=== PATIENT | male | born 1995 | race American Indian/Alaskan Native ===

== ENCOUNTER 2018-02-17 00:15 | Emergency (ER) | payer SELFPAY ==
[2018-02-17 00:30] VITALS: BP 123/88; PULSE 86; RESP 16; TEMP 98.1; O2SAT 100
--- NOTE | 2018-02-17 01:06 | C.PDOC ---
History Of Present Illness 22 year old male presents to the ER after he woke up from sleep with swelling and itching to the bilateral eyes and nasal congestion. Patient reports a Hx of seasonal allergies but states they have never been that bad. Denies any known allergens, SOB, chest tightness, or oral lesions. Time Seen by Provider: 02/17/18 00:45 Chief Complaint (Nursing): Allergic Reaction History Per: Patient History/Exam Limitations: no limitations Onset/Duration Of Symptoms: Hrs Current Symptoms Are (Timing): Still Present Injury To Eye?: No Associated Symptoms: Swelling, Itching Recent travel outside of the [place]: No Past Medical History Reviewed: Historical Data, Nursing Documentation, Vital Signs Vital Signs: Last Vital Signs Temp 98.1 F 02/17/18 00:28 Pulse 86 02/17/18 00:28 Resp 16 02/17/18 00:28 BP 123/88 02/17/18 00:28 Pulse Ox 100 02/17/18 00:28 Family History: States: No Known Family Hx - Social History Hx Alcohol Use: No Hx Substance Use: No - Immunization History Hx Tetanus Toxoid Vaccination: No Hx Influenza Vaccination: No Hx Pneumococcal Vaccination: No Review Of Systems Constitutional: Negative for: Fever, Chills Eyes: Positive for: Other (Eyelid swelling and itching) ENT: Positive for: Nose Congestion Respiratory: Negative for: Shortness of Breath, Other (Chest tightness) Physical Exam - Physical Exam Appears: Non-toxic Skin: Normal Color, Warm, Dry Head: Atraumatic, Normacephalic, No Tenderness (Frontal sinus) Eye(s): bilateral: PERRL, EOMI, Other (Upper and lower eyelid swelling, ciliary injection, no crusting of eyelids) Nose: Discharge (Clear) Oral Mucosa: Moist Tongue: Normal Appearing, No Swelling Lips: Normal Appearing, No Swelling Throat: Normal, No Other (Swelling) Neck: Normal, Supple, No Other (Swelling) Neurological/Psych: Oriented x3, Normal Speech ED Course And Treatment O2 Sat by Pulse Oximetry: 100 (Room air) Pulse Ox Interpretation: Normal Progress Note: Benadryl administered. Patient is resting comfortably in the ER in no acute respiratory distress, vitals are stable, will discharge home with Rx and instructions to follow up with PMD or return if symptoms worsen. Disposition - Disposition Referrals: [facility] at [facility] [Outside] Disposition: HOME/ ROUTINE Disposition Time: 01:04 Condition: STABLE Additional Instructions: Apply cold compress to area Use all medications as directed Follow up with PMD Return to E if worse Prescriptions: Cetirizine HCl [Zyrtec] 10 mg PO DAILY #14 capsule Olopatadine 0.1% Opht [Patanol 5 Ml] 1 drop OP BID #1 bottle Instructions: Seasonal Allergies (DC) Forms: [employer] (Bruneian) - Clinical Impression Clinical Impression: Allergic rhinitis - PA / CHANGE OF ADDRESS CLERK / Resident Statement MD/DO has reviewed & agrees with the documentation as recorded. - Scribe Statement The provider has reviewed the documentation as recorded by the Scribjacqueline Armando All medical record entries made by the Helenibjacqueline were at my direction and personally dictated by me. I have reviewed the chart and agree that the record accurately reflects my personal performance of the history, physical exam, medical decision making, and the department course for this patient. I have also personally directed, reviewed, and agree with the discharge instructions and disposition.
== END 2018-02-17 01:22 | disposition home or self-care (01) ==
LOC: C.ER 00:15
DX: J30.9 Allergic rhinitis, unspecified (principal)

== ENCOUNTER 2018-03-30 13:00 | Emergency (ER) | payer MEDICAID ==
[2018-03-30 13:21] VITALS: TEMP 97.9; O2SAT 100
[2018-03-30 13:22] VITALS: BMI 21.1
[2018-03-30] MEDS ORDERED: Bupivacaine HCl 0.25% PF (10 ml) Inj INFIL ONE (13:26)
--- NOTE | 2018-03-30 13:34 | C.PDOC ---
History Of Present Illness 22 year old male presents to the ED for an evaluation of laceration to the left palm sustained prior to the arrival. Patient reports he was running to catch the bus when he tripped and fell and landed on his left hand. States he went home and sister put dressing on wound and brought him to the ED. Patient is right hand dominant. Denies any LOC or any other injuries. Time Seen by Provider: 03/30/18 13:17 Chief Complaint (Nursing): Abnormal Skin Integrity History Per: Patient History/Exam Limitations: no limitations Onset/Duration Of Symptoms: Hrs Current Symptoms Are (Timing): Still Present Location Of Injury: Left: Hand (laceration ) Quality Of Symptoms: Painful Past Medical History Reviewed: Historical Data, Nursing Documentation, Vital Signs Vital Signs: Last Vital Signs Temp 97.9 F 03/30/18 13:18 Pulse 83 03/30/18 13:18 Resp 18 03/30/18 13:18 BP 128/83 03/30/18 13:18 Pulse Ox 100 03/30/18 13:18 - Medical History PMH: No Chronic Diseases Surgical History: No Surg Hx Family History: States: No Known Family Hx - Social History Hx Alcohol Use: No Hx Substance Use: No - Immunization History Hx Tetanus Toxoid Vaccination: No Hx Influenza Vaccination: No Hx Pneumococcal Vaccination: No Review Of Systems Except As Marked, All Systems Reviewed And Found Negative. Skin: Positive for: Other (laceration to palmar aspect of left hand ) Neurological: Negative for: Weakness, Numbness Physical Exam - Physical Exam Appears: Non-toxic, No Acute Distress Skin: Warm, Dry, No Rash, Other (6.5cm long laceration to the most inferior thenar eminence extending up and around the web space between the thumb and index finger ) Head: Normacephalic Eye(s): bilateral: Normal Inspection Nose: Normal Oral Mucosa: Moist Extremity: Normal ROM, Capillary Refill (less than 2 sec to left hand ), Other (LUE: Full ROM of forearm, wrist, and fingers. (-) erythema (-) swelling. Intact sensation to palmar and dorsal aspect of left hand. No obvious palpable injury to left wrist, hand, or fingers. Left fingers oppose to thumb. ) Pulses: Left Radial: Normal, Right Radial: Normal Neurological/Psych: Oriented x3, Normal Speech, Normal Motor, Normal Sensation Gait: Steady ED Course And Treatment O2 Sat by Pulse Oximetry: 100 (RA) Pulse Ox Interpretation: Normal - Other Rad Left hand XR X-Ray: Viewed By Me, Read By Radiologist Interpretation: Accession No. : [id number]. Patient Name / ID : SIOMARA ROCKWELL / [id number]. Exam Date : 03/30/2018 13:40:17 ( Approved ). Study Comment : Sex / Age : M / 22Y. Creator : Chance Loving MD. Dictator : Chance Loving MD. Cream Maker : Glove Former : Chance Loving MD. Approver2 : Report Date : 03/30/2018 14:36:18. My Comment : . PROCEDURE: Left Hand Radiographs. HISTORY: injury. COMPARISON: None. FINDINGS: BONES: Copy. JOINTS: Normal. No osteoarthritic changes. SOFT TISSUES: Normal. OTHER FINDINGS: None. IMPRESSION: Normal left hand radiographs. . Concordant results with the preliminary interpretation rendered by the emergency department physician\PA at the conclusion of the procedure. Laceration - Laceration Repair left hand Wound Length (In cm): 6.5 Description Of Wound: Linear (most inferior thenar eminence extending to the web space betwee thumb and index finger ), Clean, Irregular (web space ) Anesthesia: Bupivicaine 0.25% Wound Examination: Irrigated With Saline, No FB With Wound Exploration, No Tendon Injury With Wound Exploration Wound Closure: Suture (6 subcutaneous, 15 skin ) Suture Technique And Material Used: Nylon (4-0 ), Vicryl (3-0) Wound Complexity: Intermediate Medical Decision Making Medical Decision Making: Plan - XR left hand - Digital block - Bupicaine - Keflex 500mg PO - Percocet - Tetanus vaccination Laceration closed with sutures. Neurovascular intact before and after the procedure. No foreign body found. Patient tolerated procedure well. Procedure performed without difficulty. Patient has full ROM of left hand and fingers. Patient given Rx for Keflex. Splint placed by student services rep to help immobilize finger and facilitate healing. Instructed to remove bandage to look at wound and make sure the wound is healing well. Instructed to return to the ED if he notices any signs of infection like redness, drainage, pus, fever, chills, or any other symptoms. Disposition Counseled Patient/Family Regarding: Studies Performed, Diagnosis, Need For Followup - Disposition Referrals: [facility] [Outside] [facility] [Outside] Disposition: HOME/ ROUTINE Disposition Time: 15:41 Condition: IMPROVED Additional Instructions: MOIZ STRINGER, thank you for letting us take care of you today. Your provider was Eileen Scott MD and you were treated for LACERATION ON LT FINGER. The emergency medical care you received today was directed at your acute symptoms. If you were prescribed any medication, please fill it and take as directed. It may take several days for your symptoms to resolve. Return to the Emergency Department if your symptoms worsen, do not improve, or if you have any other problems. Please contact your doctor or call one of the physicians/clinics you have been referred to that are listed on the Patient Visit Information form that is included in your discharge packet. Bring any paperwork you were given at discharge with you along with any medications you are taking to your follow up visit. Our treatment cannot replace ongoing medical care by a primary care provider outside of the emergency department. Return to the Emergency Department in 7-10 days for suture removal. Thank you for allowing the [facility] team to be part of your care today. Prescriptions: Cephalexin [cephalexin] 500 mg PO QID #40 cap Ibuprofen [Motrin Tab] 800 mg PO TID PRN #30 tab PRN Reason: Pain, Moderate (4-7) Instructions: Wound Care (DC), Laceration Repair With Stitches (DC) Forms: General Discharge Instructions, [employer] [facility] (Thai), Work Excuse - POA Present On Arrival: None - Clinical Impression Clinical Impression: Laceration of hand - Scribe Statement The provider has reviewed the documentation as recorded by the Scribe Ladan Paneque All medical record entries made by the Hector were at my direction and personally dictated by me. I have reviewed the chart and agree that the record accurately reflects my personal performance of the history, physical exam, medical decision making, and the department course for this patient. I have also personally directed, reviewed, and agree with the discharge instructions and disposition.
[2018-03-30] MEDS ORDERED: Oxycodone/Acetaminophen 5/325 mg Tab PO STA (13:48)
[2018-03-30] MEDS ORDERED: Oxycodone/Acetaminophen 5/325 mg Tab ONE (13:52)
--- NOTE | 2018-03-30 14:40 | RAD ---
PROCEDURE: Left Hand Radiographs. HISTORY: injury COMPARISON: None. FINDINGS: BONES: Copy JOINTS: Normal. No osteoarthritic changes. SOFT TISSUES: Normal. OTHER FINDINGS: None. IMPRESSION: Normal left hand radiographs. Concordant results with the preliminary interpretation rendered by the emergency department physician procedure.
[2018-03-30] MEDS ORDERED: Tdap Vaccine 0.5 ml Vial (10-64 yrs) IM ONE ×2 (15:40→15:47)
[2018-03-30 16:07] VITALS: BP 129/71; PULSE 62; RESP 16
== END 2018-03-30 16:08 | disposition home or self-care (01) ==
LOC: C.ER 13:00
DX: S61.412A Laceration without foreign body of left hand, initial encounter (principal); W01.0XXA Fall on same level from slipping, tripping and stumbling without subsequent striking against object, initial encounter; Y93.02 Activity, running; Z23 Encounter for immunization

== ENCOUNTER 2018-04-10 10:07 | Emergency (ER) | payer MEDICAID ==
[2018-04-10 10:07] VITALS: BMI 21.1
[2018-04-10 10:17] VITALS: BP 116/78; PULSE 87; RESP 18; TEMP 98.2; O2SAT 97
--- NOTE | 2018-04-10 11:04 | C.PDOC ---
History Of Present Illness 22 year old male presents to the emergency department for suture removal. Patient states that two weeks ago he was running and fell, landing on a bottle in the street and cut his left hand along the thenar eminence of his palm and in between the webspace of digits 1 and 2. Time Seen by Provider: 04/10/18 10:17 Chief Complaint (Nursing): Wound Check History Per: Patient History/Exam Limitations: no limitations Onset/Duration Of Symptoms: Other (two weeks ago) Current Symptoms Are (Timing): Better Location Of Injury: Left: Hand Quality Of Symptoms: Other (wound, laceration) Past Medical History Reviewed: Historical Data, Nursing Documentation, Vital Signs Vital Signs: Last Vital Signs Temp 98.2 F 04/10/18 10:13 Pulse 87 04/10/18 10:13 Resp 18 04/10/18 10:13 BP 116/78 04/10/18 10:13 Pulse Ox 97 04/10/18 10:13 - Medical History PMH: No Chronic Diseases Surgical History: No Surg Hx Family History: States: No Known Family Hx - Social History Hx Alcohol Use: Yes Hx Substance Use: No - Immunization History Hx Tetanus Toxoid Vaccination: Yes Hx Influenza Vaccination: No Hx Pneumococcal Vaccination: No Review Of Systems Except As Marked, All Systems Reviewed And Found Negative. Constitutional: Negative for: Fever, Chills Gastrointestinal: Negative for: Nausea, Vomiting Neurological: Negative for: Weakness, Numbness Physical Exam - Physical Exam Appears: Non-toxic, No Acute Distress Skin: Warm, Dry Head: Atraumatic, Normacephalic Eye(s): bilateral: Normal Inspection Neck: Normal, Supple Chest: Symmetrical Extremity: Other (Clean, well-healing, 7cm laceration wound with [address] to the palmar aspect of the left hand. ) Pulses: Left Radial: Normal, Right Radial: Normal Neurological/Psych: Oriented x3, Normal Speech, Normal Motor, Normal Sensation ED Course And Treatment O2 Sat by Pulse Oximetry: 97 (RA) Pulse Ox Interpretation: Normal Medical Decision Making Medical Decision Making: Plan: Suture removal Disposition Counseled Patient/Family Regarding: Diagnosis - Disposition Disposition: HOME/ ROUTINE Disposition Time: 11:03 Condition: STABLE Instructions: Stitches Removal Forms: General Discharge Instructions, [employer] [facility] (Japanese), Work Excuse - POA Present On Arrival: None - Clinical Impression Clinical Impression: Visit for suture removal - Scribe Statement The provider has reviewed the documentation as recorded by the Scribe (Davy Hameed) Provider Attestation: All medical record entries made by the Scribe were at my direction and personally dictated by me. I have reviewed the chart and agree that the record accurately reflects my personal performance of the history, physical exam, medical decision making, and the department course for this patient. I have also personally directed, reviewed, and agree with the discharge instructions and disposition.
== END 2018-04-10 11:10 | disposition home or self-care (01) ==
LOC: C.ER 10:07
DX: S61.412D Laceration without foreign body of left hand, subsequent encounter (principal)